=== PATIENT | male | born 1975 | race Caucasian/White ===

== ENCOUNTER 2017-10-11 17:26 | Emergency (ER) | payer OTHER ==
[~2017-10-11] VITALS: Ht 175.3 cm; Wt 79.7 kg
[2017-10-11] MEDS ORDERED: ZOFRAN ODT4 MG PO (20:34)
[2017-10-11 20:41] LABS: HEMATOCRIT 38.7 % (38.0-50.0); HEMOGLOBIN 13.8 G/DL (12.5-16.6); MCH 31.7 PG (29.0-34.0); MCHC 35.7 G/DL (30.0-36.0); MCV 88.8 FL (86-99); PLATELET COUNT 144 K/uL (156-360); RBC DIS.WIDTH-CV 12.1 % (11.8-14.6); RBC DIS.WIDTH-SD 39.8 % (39-53); RED BLOOD COUNT 4.36 M/uL (4.00-5.50); WHITE BLOOD COUNT 4.9 K/uL (4.1-10.2)
[2017-10-11 20:49] LABS: CHLORIDE 98 mEq/L (99-109); POTASSIUM 3.5 mEq/L (3.7-5.4); SODIUM 131 mEq/L (136-147)
[2017-10-11 20:51] LABS: GLUCOSE 134 mg/dL (70-99)
[2017-10-11 20:55] LABS: CREATININE 0.9 mg/dL (0.6-1.3); GFR ESTIMATE (CALCULATED) > 59 mL/min/ (58.99-99999)
[2017-10-11 20:56] LABS: UREA NITROGEN (BUN) 11 mg/dL (9-23)
[2017-10-11 22:16] VITALS: BP 109/70
== END 2017-10-11 22:17 | disposition home or self-care (01) ==
LOC: EME 17:26
PROVIDERS: Nurse Practitioner Family
DX: J11.1 Influenza due to unidentified influenza virus with other respiratory manifestations (principal)
CPT/HCPCS: 80048; 85027; 99281; 99284; J1200; J1885; J2405; J7030; J7040